=== PATIENT | female | born 1995 | race Hispanic/Latino ===

== ENCOUNTER 2018-08-28 13:22 | Emergency (ER) | payer BC ==
[2018-08-28 13:26] VITALS: TEMP 97.9
--- NOTE | 2018-08-28 13:42 | ED PDOC ---
HPI: Back Time Seen by Provider: 08/28/18 13:37 Chief Complaint (Nursing): Back Pain Chief Complaint (Provider): Back Pain History Per: Patient History/Exam Limitations: no limitations Onset/Duration Of Symptoms: Days (x4) Current Symptoms Are (Timing): Still Present Additional Complaint(s): 23 year old female presents to the ED for evaluation of back pain. 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 Subsequently, she notes developing right sided back pain. Otherwise, denies falls and use of otc medicine prior to arrival. PMD: none provided Past Medical History Reviewed: Historical Data, Nursing Documentation, Vital Signs Vital Signs: Last Vital Signs Temp 97.9 F 08/28/18 13:24 Pulse 78 08/28/18 13:24 Resp 18 08/28/18 13:24 BP 147/82 08/28/18 13:24 Pulse Ox 100 08/28/18 13:24 - Medical History PMH: No Chronic Diseases - Surgical History Surgical History: No Surg Hx - Family History Family History: States: Unknown Family Hx - Social History Current smoker - smoking cessation education provided: No Alcohol: None Drugs: Denies - Home Medications Home Medications: Ambulatory Orders Medication Instructions Recorded RX: Naproxen 375 mg PO Q8 PRN #21 tablet 08/28/18 diaZEpam [Valium] 5 mg PO Q8 PRN #6 tab 08/28/18 - Allergies Allergies/Adverse Reactions: Allergies Allergy/AdvReac Type Severity Reaction Status Date / Time No Known Allergies Allergy Verified 08/28/18 13:24 Review of Systems ROS Statement: Except As Marked, All Systems Reviewed And Found Negative Musculoskeletal: Positive for: Back Pain (right sided) Physical Exam - Reviewed Nursing Documentation Reviewed: Yes Vital Signs Reviewed: Yes - Physical Exam Appears: Positive for: No Acute Distress Head Exam: Positive for: ATRAUMATIC, NORMOCEPHALIC Skin: Positive for: Normal Color. Negative for: Rash Eye Exam: Positive for: Normal appearance Neck: Positive for: Normal, Painless ROM, Supple Cardiovascular/Chest: Positive for: Regular Rate, Rhythm Respiratory: Positive for: Normal Breath Sounds. Negative for: Respiratory Distress Back: Positive for: Other (tenderness to right para thoracic region) - Laboratory Results Urine POC: Negative - ECG O2 Sat by Pulse Oximetry: 100 (RA) Pulse Ox Interpretation: Normal Medical Decision Making Medical Decision Making: Time: 1337 Initial Impression: back pain Initial Plan: --U-preg --Toradol 30mg IM Scribe Attestation: Documented by Daniela Doan, acting as a scribe for Vj Warner PA-C. Provider Scribe Attestation: All medical record entries made by the Scribe were at my direction and personally dictated by me. I have reviewed the chart and agree that the record accurately reflects my personal performance of the history, physical exam, medical decision making, and the department course for this patient. I have also personally directed, reviewed, and agree with the discharge instructions and disposition. Disposition - Clinical Impression Clinical Impression: Muscle spasm - Patient ED Disposition Is Patient to be Admitted: No - Disposition Referrals: [facility] [Outside] Disposition: Routine/Home Disposition Time: 14:22 Condition: IMPROVED Prescriptions: diaZEpam [Valium] 5 mg PO Q8 PRN #6 tab PRN Reason: Muscle Spasm RX: Naproxen 375 mg PO Q8 PRN #21 tablet PRN Reason: Pain, Moderate (4-7) Instructions: Muscle Spasms (DC) Forms: [facility] ED School/Work Excuse
[2018-08-28 14:23] VITALS: BP 136/77; PULSE 79; RESP 15
[2018-08-28 18:25] VITALS: O2SAT 100
== END 2018-08-28 14:23 | disposition home or self-care (01) ==
LOC: H.ER 13:22
DX: M62.830 Muscle spasm of back (principal)
CPT/HCPCS: 81025; 96372; 99283; J1885